=== PATIENT | male | born 1960 | race Caucasian/White ===

== ENCOUNTER 2022-11-17 20:53 | Emergency (ER) | payer OTHER ==
[~2022-11-17] VITALS: Ht 175.3 cm; Wt 99.8 kg
[2022-11-17] MEDS ORDERED: AMOX TR-K CLV1 EAC1 PO (22:43)
[2022-11-17 23:00] VITALS: BP 172/95
== END 2022-11-17 23:00 | disposition home or self-care (01) ==
LOC: ED 20:53
DX: S61.012A Laceration without foreign body of left thumb without damage to nail, initial encounter (principal); Z23 Encounter for immunization; I10 Essential (primary) hypertension; E78.00 Pure hypercholesterolemia, unspecified; W27.0XXA Contact with workbench tool, initial encounter
CPT/HCPCS: 12001; 73140; 90471; 90715; 99283-25; A9270